=== PATIENT | male | born 1945 | race Caucasian/White ===

== ENCOUNTER 2020-11-19 11:02 | Outpatient (CLI) | payer MEDICARE | END 2020-11-19 11:03 | disposition home or self-care (01) | LOC: CSHRAD 11:02 | PROVIDERS: ATTEND Student in an Organized Health Care Education/Training Program | DX: M54.5 Low back pain (principal); Z98.890 Other specified postprocedural states; M47.816 Spondylosis without myelopathy or radiculopathy, lumbar region; M43.16 Spondylolisthesis, lumbar region; M43.17 Spondylolisthesis, lumbosacral region | CPT/HCPCS: 72100 ==

== ENCOUNTER 2020-11-20 15:34 | Outpatient (CLI) | payer MEDICARE | END 2020-11-20 15:35 | disposition home or self-care (01) | LOC: CSHRAD 15:34 | PROVIDERS: ATTEND Student in an Organized Health Care Education/Training Program | DX: M43.16 Spondylolisthesis, lumbar region (principal) | CPT/HCPCS: 72100 ==